=== PATIENT | male | born 1970 | race Caucasian/White ===

== ENCOUNTER 2017-09-16 11:27 | Inpatient (IN) | payer OTHER ==
[2017-09-16 12:03] VITALS: BMI 24.7
--- NOTE | 2017-09-16 13:55 | HP ---
COWS - Scale Resting Pulse: 0= [place] 80 or Below Sweatin= Chills/Flushing Restless Observation: 1= Difficult to Sit Still Pupil Size: 0= Normal to Room Light Bone or Joint Aches: 1= Mild Discomfort Runny Nose/ Eye Tearin= Nasal Congestion GI Upset > 30mins: 1= Stomach Cramp Tremor Observation: 2= Slight Tremor Visible Yawning Observation: 2= >3x During Session Anxiety or Irritability: 1=Feels Anxious/Irritable Goose Flesh Skin: 3=Piloerection COWS Score: 13 CIWA Score - CIWA Score Nausea/Vomitin-Mild Nausea/No Vomiting Muscle Tremors: 4-Moderate,w/Arms Extend Anxiety: 4-Mod. Anxious/Guarded Agitation: 1-Slight > Activity Paroxysmal Sweats: 1-Minimal Palms Moist Orientation: 0-Oriented Tacttile Disturbances: 1-Very Mild Itch/Numbness Auditory Disturbances: 1-Very Mild Visual Disturbances: 1-Very Mild Sensitivity Headache: 1-Very Mild CIWA-Ar Total Score: 15 Admission ROS BHS - HPI Chief Complaint: I need help, I'm sick Allergies/Adverse Reactions: Allergies Allergy/AdvReac Type Severity Reaction Status Date / Time egg AdvReac Intermediate Hives Verified 09/16/17 13:55 Fish Containing Products AdvReac Intermediate Hives Verified 09/16/17 13:55 History of Present Illness: 47 yo gentleman here for detox from opiates and alcohol. Reports being in a methadone program 110mg daily - last dosed on 09/14/17 - states he was ' cut' from the program and told to go for a taper on Monday but he failed to show up and now feels sick and wishes detox - aware we only start at methadone 20mg - states 'anything, anything, I 'm so sick'. No seizures, does have black outs. States he only picked up heroin yesterday when he couldn't get the methadone. Exam Limitations: Clinical Condition - Ebola screening Have you traveled outside of the country in the last 21 days: No (NN) Have you had contact with anyone from an Ebola affected area: No Have you been sick,other than usual withdrawal symptoms: No Do you have a fever: No - Review of Systems Constitutional: Chills, Loss of Appetite, Malaise, Changes in sleep, Weakness EENT: reports: Blurred Vision, Nose Congestion Respiratory: reports: No Symptoms reported Cardiac: reports: No Symptoms Reported GI: reports: Poor Appetite, Indigestion, Abdominal cramping : reports: Dysuria Musculoskeletal: reports: Back Pain, Muscle Pain Integumentary: reports: Dryness Neuro: reports: Headache, Tremors Endocrine: reports: No Symptoms Reported Hematology: reports: No Symptoms Reported Psychiatric: reports: Judgement Intact, Mood/Affect Appropiate, Orientated x3, Anxious Other Systems: Reviewed and Negative Patient History - Patient Medical History Hx Anemia: No Hx Asthma: No Hx Chronic Obstructive Pulmonary Disease (COPD): No Hx Cancer: No Hx Cardiac Disorders: No Hx Congestive Heart Failure: No Hx Hypertension: No Hx Hypercholesterolemia: No Hx Pacemaker: No HX Cerebrovascular Accident: No Hx Seizures: No Hx Dementia: No Hx Diabetes: No Hx Gastrointestinal Disorders: No Hx Liver Disease: No Hx Genitourinary Disorders: No Hx Sexually Transmitted Disorders: No Hx Renal Disease (ESRD): No Hx Thyroid Disease: No Hx Human Immunodeficiency Virus (HIV): No Hx Hepatitis C: Yes (not treated) Hx Depression: No Hx Suicide Attempt: No Hx Bipolar Disorder: Yes (no meds, hospitalized [facility], also [facility]) Hx Schizophrenia: No - Patient Surgical History Past Surgical History: Yes Other Surgical History: glass removed from left palm 'years ago' - PPD History Previous Implant?: Yes Documented Results: Negative w/o proof Implanted On Prior R Admission?: No PPD to be Administered?: Yes - Reproductive History Patient is a Female of Child Bearing Age (11 -55 yrs old): No (male) - Smoking Cessation Smoking history: Never smoked Aproximately how many cigarettes per day: 20 Initiated information on smoking cessation: Yes 'Breaking Loose' booklet given: 09/16/17 (give no floor) - Substance & Tx. History Hx Alcohol Use: Yes Hx Substance Use: Yes Substance Use Type: Alcohol, Cocaine, Heroin Hx Substance Use Treatment: Yes (detox methadone rehab) - Substances Abused alcohol Route: Oral Frequency: Daily Amount used: 2 pints liquore, 12 beers 16 oz Age of first use: 16 Date of Last Use: 09/15/17 Heroin Route: Injection Frequency: 1-2 times per week Amount used: 1 bundle Age of first use: 45 Date of Last Use: 09/15/17 crack Route: Smoking Frequency: 3-6 times per week Amount used: $50 Age of first use: 27 Date of Last Use: 09/14/17 Family Disease History - Family Disease History Family Disease History: Heart Disease: Mother (living, stroke), Other: Father ( , etoh,), Mother, Brother (three living, healthy) Admission Physical Exam [facility] - Vital Signs Vital Signs: Vital Signs - 24 hr 09/16/17 11:53 Temperature 98.0 F Pulse Rate 78 Respiratory 18 Rate Blood Pressure 128/90 - Physical General Appearance: Yes: Nourished, Appropriately Dressed, Moderate Distress, Thin, Sweating, Anxious HEENTM: Yes: EOMI, Hearing grossly Normal, Normocephalic, Normal Voice, Pharynx Normal Respiratory: Yes: Normal Breath Sounds, No Respiratory Distress Neck: Yes: No masses,lesions,Nodules, Supple Breast: Yes: Breast Exam Deferred Cardiology: Yes: Regular Rhythm, Regular Rate Abdominal: Yes: Flat, Soft Genitourinary: Yes: Dysuria Back: Yes: Normal Inspection Musculoskeletal: Yes: full range of Motion, Gait Steady Extremities: Yes: Normal Inspection, Normal Range of Motion, Non-Tender Neurological: Yes: Fully Oriented, Alert, Motor Strength 5/5, Normal Mood/Affect , Normal Response Integumentary: Yes: Normal Color, Warm, [place] (wrists noted scarring on left arm - due to) Lymphatic: Yes: Within Normal Limits - Diagnostic (1) Alcohol dependence with uncomplicated withdrawal Current Visit: Yes Status: Chronic (2) Opioid dependence with withdrawal Current Visit: Yes Status: Chronic (3) Cocaine dependence Current Visit: Yes Status: Chronic Qualifiers: Substance use status: uncomplicated Qualified Code(s): F14.20 - Cocaine dependence, uncomplicated (4) Nicotine dependence Current Visit: Yes Status: Acute Qualifiers: Nicotine product type: cigarettes (5) Hepatitis C Current Visit: Yes Status: Acute Qualifiers: Viral hepatitis chronicity: chronic Hepatic coma status: without hepatic coma Qualified Code(s): B18.2 - Chronic viral hepatitis C Cleared for Admission S - Detox or Rehab [facility] Level of Care: Medically Managed Detox Regimen/Protocol: Methadone/Librium [facility] Breath Alcohol Content Breath Alcohol Content: 0 Urine Drug Screen - Results Drug Screen Negative: No Urine Drug Screen Results: RIGO-Cocaine, OPI-Opiates, BZO-Benzodiazepines, MTD- Methadone, TCA-Tricyclic Antidepress, OXY-Oxycodone
[2017-09-16] MEDS ORDERED: IBUPROFEN 400 MG TABLET (FP) PO PRN (14:28)
[2017-09-16] MEDS ORDERED: MAG HYDROX/AL HYDROX/SIMETH 30 ML UNIT-DOSE CUP PO PRN (14:28)
[2017-09-16] MEDS ORDERED: NICOTINE POLACRILEX 2 MG GUM BUC PRN (14:28)
[2017-09-16] MEDS ORDERED: ACETAMINOPHEN 325 MG TABLET (FP) PO PRN (14:28)
[2017-09-16] MEDS ORDERED: P-EPHED 60MG/TRIPROLIDI 2.5MG TABLET PO PRN (14:28)
[2017-09-16] MEDS ORDERED: MAGNESIUM CITRATE 300 ML BOTTLE PO PRN (14:28)
[2017-09-16] MEDS ORDERED: MENTHOL/PHENOL 1 EACH UD MM PRN (14:28)
[2017-09-16] MEDS ORDERED: MAGNESIUM HYDROX 2400MG/30ML ORAL SUSPENSION 30 ML CUP PO PRN (14:28)
[2017-09-16] MEDS ORDERED: LOPERAMIDE HCL 2 MG CAPSULE PO PRN (14:28)
[2017-09-16] MEDS ORDERED: guaiFENesin/D-METHORPHAN HB 10 ML UNIT-DOSE CUPS PO PRN (14:28)
[2017-09-16] MEDS: hydrOXYzine PAMOATE 50 MG CAPSULE (FP) PO PRN (15:41)
[2017-09-16] MEDS ORDERED: METHADONE HCL 10 MG TABLET (FOR DETOX USE ONLY) PO ONE ×2 (16:00→23:00)
[2017-09-16] MEDS ORDERED: chlordiazePOXIDE HCL 25 MG CAPSULE PO ONE (16:00)
[2017-09-16] MEDS: chlordiazePOXIDE HCL 25 MG CAPSULE PO SCH ×2 (17:42→22:09)
[2017-09-16 18:30] LABS: URINE APPEARANCE TURBID; URINE BILIRUBIN NEGATIVE (NEGATIVE); URINE BLOOD NEGATIVE (NEGATIVE); URINE COLOR YELLOW; URINE GLUCOSE (UA) NEGATIVE (NEGATIVE); URINE KETONE TRACE (NEGATIVE); URINE LEUK ESTERASE TRACE (NEGATIVE); URINE NITRITE NEGATIVE (NEGATIVE); URINE UROBILINOGEN 4.0 E.U/dl mg/dL (0.2-1.0)
[2017-09-16 18:46] LABS: URINE PROTEIN 1+ (NEGATIVE)
[2017-09-16 18:50] LABS: URINE BACTERIA RARE /hpf (NONE SEEN); URINE MUCUS MANY
[2017-09-16] MEDS: THIAMINE HCL 100 MG TABLET (FP) PO SCH (22:09)
[2017-09-17] MEDS: chlordiazePOXIDE HCL 25 MG CAPSULE PO SCH ×4 (06:18→23:02)
--- NOTE | 2017-09-17 09:45 | PN ---
[facility] CIWA - CIWA Score Nausea/Vomitin-Mild Nausea/No Vomiting Muscle Tremors: 3 Anxiety: 3 Agitation: 3 Paroxysmal Sweats: 1-Minimal Palms Moist Orientation: 0-Oriented Tacttile Disturbances: 0-None Auditory Disturbances: 0-None Visual Disturbances: 0-None Headache: 0-None Present CIWA-Ar Total Score: 11 BHS COWS - Scale Resting Pulse: 1= [place] 81-100 Sweatin= Chills/Flushing Restless Observation: 1= Difficult to Sit Still Pupil Size: 0= Normal to Room Light Bone or Joint Aches: 2= Severe Diffuse Aches Runny Nose/ Eye Tearin= Nasal Congestion GI Upset > 30mins: 1= Stomach Cramp Tremor Observation of Outstretched Hands: 1= Tremor [place], Not Seen Yawning Observation: 0= None Anxiety or Irritability: 1=Feels Anxious/Irritable Goose Flesh Skin: 0=Smooth Skin COWS Score: 9 S Progress Note (SOAP) Subjective: diarrhea sweat tremor joint aches anxiety irritable agitation Objective: 09/17/17 09:44 Vital Signs Temperature 98 F 09/17/17 06:16 Pulse Rate 65 09/17/17 06:16 Respiratory Rate 16 09/17/17 06:16 Blood Pressure 131/79 09/17/17 06:16 O2 Sat by Pulse Oximetry (%) Laboratory Last Values Urine Color Yellow 09/16/17 11:40 Urine Appearance Turbid 09/16/17 11:40 Urine pH 5.0 (5.0-8.0) 09/16/17 11:40 Ur Specific [place] 1.026 (1.001-1.035) 09/16/17 11:40 Urine Protein 1+ (NEGATIVE) H 09/16/17 11:40 Urine Glucose (UA) Negative (NEGATIVE) 09/16/17 11:40 Urine Ketones Trace (NEGATIVE) H 09/16/17 11:40 Urine Blood Negative (NEGATIVE) 09/16/17 11:40 Urine Nitrite Negative (NEGATIVE) 09/16/17 11:40 Urine Bilirubin Negative (NEGATIVE) 09/16/17 11:40 Urine Urobilinogen 4.0 e.u/dl mg/dL (0.2-1.0) 09/16/17 11:40 Ur Leukocyte Esterase Trace (NEGATIVE) 09/16/17 11:40 Urine WBC (Auto) 38 /hpf (3-5) 09/16/17 11:40 Urine RBC (Auto) 3 /hpf (0-3) 09/16/17 11:40 Urine Bacteria Rare /hpf (NONE SEEN) 09/16/17 11:40 Urine Mucus Many 09/16/17 11:40 lab noted Assessment: 09/17/17 09:47 withdrawal sx 09/17/17 09:47 rule out uti Plan: continue detox repeat ua
[2017-09-17] MEDS ORDERED: METHADONE HCL 10 MG TABLET (FOR DETOX USE ONLY) PO SCH (10:00)
[2017-09-17 10:09] LABS: HEMOGLOBIN 14.8 GM/dL (11.7-16.9); MCH 29.4 pg (25.7-33.7); MEAN CELL VOLUME 89.2 fl (80-96); MEAN PLT VOLUME 8.6 fl (7.5-11.1); PLATELET COUNT 149 K/MM3 (134-434); RBC 5.05 M/mm3 (4.00-5.60); RDW 14.7 % (11.9-15.9); WHITE BLOOD COUNT 6.7 K/mm3 (4.0-10.0)
[2017-09-17 10:13] LABS: CHLORIDE 110 mmol/L (98-107); CREATININE 0.6 mg/dL (0.7-1.3); POTASSIUM 4.2 mmol/L (3.5-5.1); SGOT/AST 12 U/L (15-37); SGPT/ALT 19 U/L (12-78); SODIUM 141 mmol/L (136-145)
[2017-09-17] MEDS: PRENATAL VITAMINS W/ FOLIC ACID TABLET (FP) PO SCH (10:18)
[2017-09-17 10:30] LABS: ALBUMIN 3.4 g/dl (3.4-5.0); ALK PHOS 76 U/L (45-117); ANION GAP 4 (8-16); BILIRUBIN,TOTAL 0.6 mg/dL (0.2-1.0); BLOOD UREA NITROGEN 17 mg/dL (7-18); CALCIUM 8.4 mg/dL (8.5-10.1); CO2 27 mmol/L (21-32); GLUCOSE,RANDOM 99 mg/dL (74-106); TOT PROT 6.6 g/dl (6.4-8.2)
[2017-09-17] MEDS: chlordiazePOXIDE HCL 25 MG CAPSULE PO PRN ×2 (11:58→19:07)
--- NOTE | 2017-09-17 12:28 | PN ---
S Progress Note Note: Patient was approached at bedside while having lunch. He told freelance writer he did not feel like talking today to come back tomorrow
--- NOTE | 2017-09-17 13:14 | EKG ---
Test Reason : Blood Pressure : / mmHG Vent. Rate : 070 BPM Atrial Rate : 070 BPM P-R Int : 114 ms QRS Dur : 082 ms QT Int : 420 ms P-R-T Axes : 049 031 -01 degrees QTc Int : 453 ms NORMAL SINUS RHYTHM NORMAL ECG NO PREVIOUS ECGS AVAILABLE BASELINE ARTIFACT Confirmed by KORI LILLY, MONICA ([id number]) on 09/17/2017 1:13:59 PM Referred By: Confirmed By:MONICA SHEIKH MD
[2017-09-17] MEDS: hydrOXYzine PAMOATE 50 MG CAPSULE (FP) PO PRN (20:17)
[2017-09-17] MEDS: THIAMINE HCL 100 MG TABLET (FP) PO SCH (23:02)
[2017-09-18] MEDS: chlordiazePOXIDE HCL 25 MG CAPSULE PO SCH ×2 (05:25→10:06)
--- NOTE | 2017-09-18 09:40 | PN ---
S CIWA - CIWA Score Nausea/Vomitin Muscle Tremors: 3 Anxiety: 3 Agitation: 3 Paroxysmal Sweats: 1-Minimal Palms Moist Orientation: 0-Oriented Tacttile Disturbances: 1-Very Mild Itch/Numbness Auditory Disturbances: 1-Very Mild Visual Disturbances: 0-None Headache: 2-Mild CIWA-Ar Total Score: 17 BHS COWS - Scale Resting Pulse: 0= [place] 80 or Below Sweatin= Chills/Flushing Restless Observation: 3= Extraneous Movement Pupil Size: 1= Pupils >than Normal Bone or Joint Aches: 2= Severe Diffuse Aches Runny Nose/ Eye Tearin= Runny Nose/Eyes GI Upset > 30mins: 2= Nausea/Diarrhea Tremor Observation of Outstretched Hands: 2= Slight Tremor Visible Yawning Observation: 1= 1-2x During Session Anxiety or Irritability: 2=Irritable/Anxious Goose Flesh Skin: 0=Smooth Skin COWS Score: 16 S Progress Note (SOAP) Subjective: ALERT,IRRITABLE ,ANXIOUS,PAIN IN THE BODY AND BACK,TREMOR Objective: 09/18/17 09:37 Vital Signs Temperature 96.6 F L 09/18/17 06:10 Pulse Rate 71 09/18/17 06:10 Respiratory Rate 18 09/18/17 06:10 Blood Pressure 137/82 09/18/17 06:10 O2 Sat by Pulse Oximetry (%) Laboratory Last Values WBC 6.7 K/mm3 (4.0-10.0) 09/17/17 07:40 RBC 5.05 M/mm3 (4.00-5.60) 09/17/17 07:40 Hgb 14.8 GM/dL (11.7-16.9) 09/17/17 07:40 Hct 45.0 % (35.4-49) 09/17/17 07:40 MCV 89.2 fl (80-96) 09/17/17 07:40 MCH 29.4 pg (25.7-33.7) 09/17/17 07:40 MCHC 33.0 g/dl (32.0-35.9) 09/17/17 07:40 RDW 14.7 % (11.9-15.9) 09/17/17 07:40 Plt Count 149 K/MM3 (134-434) 09/17/17 07:40 MPV 8.6 fl (7.5-11.1) 09/17/17 07:40 Sodium 141 mmol/L (136-145) 09/17/17 07:40 Potassium 4.2 mmol/L (3.5-5.1) 09/17/17 07:40 Chloride 110 mmol/L (98-107) H 09/17/17 07:40 Carbon Dioxide 27 mmol/L (21-32) 09/17/17 07:40 Anion Gap 4 (8-16) L 09/17/17 07:40 BUN 17 mg/dL (7-18) 09/17/17 07:40 Creatinine 0.6 mg/dL (0.7-1.3) L 09/17/17 07:40 Creat Clearance w eGFR > 60 (>60) 09/17/17 07:40 Random Glucose 99 mg/dL (74-106) 09/17/17 07:40 Calcium 8.4 mg/dL (8.5-10.1) L 09/17/17 07:40 Total Bilirubin 0.6 mg/dL (0.2-1.0) 09/17/17 07:40 AST 12 U/L (15-37) L 09/17/17 07:40 ALT 19 U/L (12-78) 09/17/17 07:40 Alkaline Phosphatase 76 U/L (45-117) 09/17/17 07:40 Total Protein 6.6 g/dl (6.4-8.2) 09/17/17 07:40 Albumin 3.4 g/dl (3.4-5.0) 09/17/17 07:40 Urine Color Yellow 09/16/17 11:40 Urine Appearance Turbid 09/16/17 11:40 Urine pH 5.0 (5.0-8.0) 09/16/17 11:40 Ur Specific [place] 1.026 (1.001-1.035) 09/16/17 11:40 Urine Protein 1+ (NEGATIVE) H 09/16/17 11:40 Urine Glucose (UA) Negative (NEGATIVE) 09/16/17 11:40 Urine Ketones Trace (NEGATIVE) H 09/16/17 11:40 Urine Blood Negative (NEGATIVE) 09/16/17 11:40 Urine Nitrite Negative (NEGATIVE) 09/16/17 11:40 Urine Bilirubin Negative (NEGATIVE) 09/16/17 11:40 Urine Urobilinogen 4.0 e.u/dl mg/dL (0.2-1.0) 09/16/17 11:40 Ur Leukocyte Esterase Trace (NEGATIVE) 09/16/17 11:40 Urine WBC (Auto) 38 /hpf (3-5) 09/16/17 11:40 Urine RBC (Auto) 3 /hpf (0-3) 09/16/17 11:40 Urine Bacteria Rare /hpf (NONE SEEN) 09/16/17 11:40 Urine Mucus Many 09/16/17 11:40 RPR Titer Nonreactive (NONREACTIVE) 09/17/17 07:40 HIV 1&2 Antibody Screen Negative 09/17/17 07:40 HIV P24 Antigen Negative 09/17/17 07:40 Assessment: 09/18/17 09:38 WITHDRAWAL SYMPTOM Plan: CONTINUE DETOX,REPEAT UA,ENCOURAGE ORAL FLUID
[2017-09-18] MEDS: PRENATAL VITAMINS W/ FOLIC ACID TABLET (FP) PO SCH (10:06)
[2017-09-18] MEDS: METHADONE HCL 5 MG TABLET (FOR DETOX USE ONLY) PO SCH (10:06)
[2017-09-18] MEDS: cloNIDine HCL 0.1 MG TABLET PO SCH ×2 (11:06→22:09)
[2017-09-18] MEDS: chlordiazePOXIDE HCL 25 MG CAPSULE PO PRN (13:03)
[2017-09-18] MEDS: chlordiazePOXIDE 5 MG CAPSULE PO SCH ×2 (18:01→22:09)
[2017-09-18] MEDS: CYCLOBENZAPRINE HCL 10 MG TABLET (FP) PO PRN (22:08)
[2017-09-18] MEDS: hydrOXYzine PAMOATE 50 MG CAPSULE (FP) PO PRN (22:08)
[2017-09-18] MEDS: THIAMINE HCL 100 MG TABLET (FP) PO SCH (22:08)
[2017-09-19] MEDS: chlordiazePOXIDE 5 MG CAPSULE PO SCH ×2 (06:59→10:24)
--- NOTE | 2017-09-19 09:23 | PN ---
S Progress Note (SOAP) Subjective: ALERT,IRRITABLE,ANXIOUS,INTERRUPTED SLEEP,PAIN IN THE BODY AND BACK Objective: 09/19/17 09:22 Vital Signs Temperature 98.1 F 09/18/17 21:24 Pulse Rate 85 09/18/17 21:24 Respiratory Rate 16 09/19/17 03:30 Blood Pressure 132/86 09/18/17 21:24 O2 Sat by Pulse Oximetry (%) Assessment: 09/19/17 09:22 WITHDRAWAL SYMPTOM Plan: CONTINUE DETOX
[2017-09-19] MEDS: cloNIDine HCL 0.1 MG TABLET PO SCH ×2 (10:24→23:08)
[2017-09-19] MEDS: PRENATAL VITAMINS W/ FOLIC ACID TABLET (FP) PO SCH (10:24)
[2017-09-19] MEDS: METHADONE HCL 5 MG TABLET (FOR DETOX USE ONLY) PO SCH (10:24)
[2017-09-19] MEDS: CYCLOBENZAPRINE HCL 10 MG TABLET (FP) PO PRN ×2 (10:27→19:07)
[2017-09-19] MEDS: chlordiazePOXIDE HCL 10 MG CAPSULE PO SCH ×2 (17:55→23:08)
[2017-09-19] MEDS: hydrOXYzine PAMOATE 50 MG CAPSULE (FP) PO PRN (19:07)
[2017-09-19] MEDS: THIAMINE HCL 100 MG TABLET (FP) PO SCH (23:08)
[2017-09-20] MEDS: chlordiazePOXIDE HCL 10 MG CAPSULE PO SCH ×2 (05:46→10:22)
[2017-09-20] MEDS ORDERED: METHADONE HCL 10 MG TABLET (FOR DETOX USE ONLY) PO SCH (10:00)
[2017-09-20] MEDS: PRENATAL VITAMINS W/ FOLIC ACID TABLET (FP) PO SCH (10:22)
[2017-09-20] MEDS: cloNIDine HCL 0.1 MG TABLET PO SCH ×2 (10:22→22:32)
--- NOTE | 2017-09-20 10:23 | PN ---
S Progress Note (SOAP) Subjective: ALERT,IRRITABLE,ANXIOUS,INTERRUPTED SLEEP Objective: 09/20/17 10:22 Vital Signs Temperature 98.3 F 09/20/17 06:12 Pulse Rate 66 09/20/17 06:12 Respiratory Rate 16 09/20/17 06:12 Blood Pressure 112/68 09/20/17 06:12 O2 Sat by Pulse Oximetry (%) Assessment: 09/20/17 10:22 WITHDRAWAL SYMPTOM Plan: CONTINUE DETOX,DISCHARGE IN AM
[2017-09-20 17:06] LABS: URINE APPEARANCE SLCLOUDY; URINE BILIRUBIN NEGATIVE (NEGATIVE); URINE BLOOD NEGATIVE (NEGATIVE); URINE COLOR DKYELLOW; URINE GLUCOSE (UA) NEGATIVE (NEGATIVE); URINE KETONE NEGATIVE (NEGATIVE); URINE LEUK ESTERASE NEGATIVE (NEGATIVE); URINE NITRITE NEGATIVE (NEGATIVE); URINE PROTEIN NEGATIVE (NEGATIVE)
[2017-09-20] MEDS: THIAMINE HCL 100 MG TABLET (FP) PO SCH (22:32)
[2017-09-21] MEDS ORDERED: METHADONE HCL 5 MG TABLET (FOR DETOX USE ONLY) PO SCH (06:00)
[2017-09-21 06:08] VITALS: BP 136/84; PULSE 69; TEMP 98
--- NOTE | 2017-09-21 08:45 | DS ---
[facility] Detox Discharge Summary Admission Date: 09/16/17 Discharge Date: 09/21/17 - History Present History: Alcohol Dependence, Cocaine Dependence, Opioid Dependence Additional Comments: FOLLOW UP WITH AFTER CARE PROGRAM ARRANGEMENT Pertinent Past History: NICOTINE DEPENDENCE HEPATITIS C - Physical Exam Results Vital Signs: Vital Signs Temperature 98 F 09/21/17 06:07 Pulse Rate 69 09/21/17 06:07 Respiratory Rate 18 09/21/17 06:07 Blood Pressure 136/84 09/21/17 06:07 O2 Sat by Pulse Oximetry (%) Pertinent Admission Physical Exam Findings: WITHDRAWAL SYMPTOM AND FINDING - Treatment Hospital Course: Detox Protocol Followed, Detoxed Safely, Responded well, Discharged Condition Good, Rehab Referral Accepted Patient has Accepted a Rehab Referral to: [facility] - Medication Discharge Medications: Ambulatory Orders NK [No Known Home Medication] 09/16/17 - Diagnosis (1) Opioid dependence with withdrawal Current Visit: Yes Status: Chronic (2) Alcohol dependence with uncomplicated withdrawal Current Visit: Yes Status: Chronic (3) Hepatitis C Current Visit: Yes Status: Acute Qualifiers: Viral hepatitis chronicity: chronic Hepatic coma status: without hepatic coma Qualified Code(s): B18.2 - Chronic viral hepatitis C (4) Nicotine dependence Current Visit: Yes Status: Acute Qualifiers: Nicotine product type: cigarettes (5) Cocaine dependence Current Visit: Yes Status: Chronic Qualifiers: Substance use status: uncomplicated Qualified Code(s): F14.20 - Cocaine dependence, uncomplicated (6) Anxiety Current Visit: Yes Status: Acute - AMA Did Patient Leave Against Medical Advice: No
[2017-09-21] MEDS: PRENATAL VITAMINS W/ FOLIC ACID TABLET (FP) PO SCH (09:41)
[2017-09-21] MEDS: cloNIDine HCL 0.1 MG TABLET PO SCH (09:41)
== END 2017-09-21 09:45 | disposition home or self-care (01) | DRG 897 ==
LOC: YASAS 11:27 → Y6N 14:29
PROVIDERS: ADMIT Internal Medicine; ATTEND Internal Medicine
PROC: HZ2ZZZZ Detoxification Services for Substance Abuse Treatment (ICD-10-PCS; principal; 2017-09-16)
DX: F11.23 Opioid dependence with withdrawal (principal); F14.20 Cocaine dependence, uncomplicated; F10.230 Alcohol dependence with withdrawal, uncomplicated; F17.210 Nicotine dependence, cigarettes, uncomplicated; F41.9 Anxiety disorder, unspecified; B18.2 Chronic viral hepatitis C; Z91.012 Allergy to eggs; Z91.013 Allergy to seafood; Z59.0 Homelessness
CPT/HCPCS: 36415; 80053; 81003; 81015; 85027; 86593; 87389; 93005; 93010; J0735